=== PATIENT | female | born 1925 | race Caucasian/White ===

== ENCOUNTER 2016-09-20 07:39 | Observation (INO) | payer MEDICARE ==
[2016-09-20] MEDS ORDERED: ACETAMINOPHEN 325 MG TABLET PO ONE (08:43)
[2016-09-20] MEDS ORDERED: LABETALOL HCL INJ 20 MG/4 ML DISP.SYRIN IV ONE (08:43)
--- NOTE | 2016-09-20 09:25 | ER Document Report ---
ED Neuro Symptoms/Deficit - General Chief Complaint: Altered Mental Status Stated Complaint: ALTERED MENTAL STATUS Mode of Arrival: Medic Information source: Patient, POA - Power of Solutions Architect Consultant TRAVEL OUTSIDE OF THE [place] IN LAST 30 DAYS: No - HPI Patient complains to provider of: Other - Altered status Onset: This morning Notes: Patient arrives via EMS for complaints of altered mental status. The patient has a history of dementia. She lives with her son. Son states that this morning he went out to get the paper and when he came back in his mother was standing in the living room with no lights on. She did not recognize him he was having difficulty speaking. She was brought in by EMS by the time she arrived to the emergency department she seemed to be back to her baseline. The patient is alert and oriented to person place and time at this time. She complains of a mild headache. She denies any unilateral numbness tingling or weakness. She denies any blurred or loss vision. She is on no blood thinners. No fevers. She denies any chest pain or short breath. No abdominal pain. No nausea vomiting diarrhea. - Related Data Allergies/Adverse Reactions: No Known Allergies Allergy (Verified 06/24/13 16:57) Past Medical History - Social History Smoking Status: Unknown if Ever Smoked Frequency of alcohol use: None Drug Abuse: None Family History: Reviewed & Not Pertinent - Past Medical History Cardiac Medical History: Reports: Hx Hypercholesterolemia, Hx Hypertension Denies: Hx Atrial Fibrillation, Hx Congestive Heart Failure, Hx Coronary Artery Disease, Hx Heart Attack Pulmonary Medical History: Reports: Hx COPD Denies: Hx Tuberculosis Neurological Medical History: Denies: Hx Cerebrovascular Accident, Hx Migraine Endocrine Medical History: Reports: Hx Diabetes Mellitus Type 2 Renal/ Medical History: Denies: Hx End Stage Renal Disease Psychiatric Medical History: Denies: Hx Depression Past Surgical History: Reports: Hx Cardiac Surgery - Pacemaker - Immunizations Hx Diphtheria, Pertussis, Tetanus Vaccination: No Hx Pneumococcal Vaccination: 03/17/13 Review of Systems - Review of Systems -: Yes All other systems reviewed and negative Physical Exam - Vital signs Vitals: Resp BP Pulse Ox 14 208/65 H 99 09/20/16 08:03 09/20/16 08:03 09/20/16 08:03 - General General appearance: Appears well, Alert - HEENT Head: Normocephalic, Atraumatic Eyes: Normal Extraocular movements intact: Yes Pupils: PERRL Visual marin normal: Yes Ears: Normal Mouth/Lips: Normal Mucous membranes: Normal Pharynx: Normal Neck: Normal - Respiratory Respiratory status: No respiratory distress Breath sounds: Normal - Cardiovascular Rhythm: Regular Heart sounds: Normal auscultation Murmur: No - Abdominal Inspection: Normal Distension: No distension Bowel sounds: Normal Tenderness: Nontender Organomegaly: No organomegaly - Back Back: Normal, Nontender - Extremities General upper extremity: Normal inspection, Nontender, Normal color, Normal ROM , Normal temperature General lower extremity: Normal inspection, Nontender, Normal color, Normal ROM , Normal temperature, Normal weight bearing. No: Wilma's sign - Neurological Neuro grossly intact: Yes Cognition: Normal Orientation: AAOx4 Luz Coma Scale Eye Opening: Spontaneous [place] Coma Scale Verbal: Oriented [place] Coma Scale Motor: Obeys Commands [place] Coma Scale Total: 15 Speech: Normal Cranial nerves: Normal Cerebellar coordination: Normal Motor strength normal: LUE, RUE, LLE, RLE Additional motor exam normals: Equal imaging engineer. No: Pronator drift, Weakness, Hemiplegia Sensory: Normal Notes: NIH stroke score of 0 - Psychological Associated symptoms: Normal affect, Normal mood - Skin Skin Temperature: Warm Skin Moisture: Dry Skin Color: Normal Course - Re-evaluation Re-evalutation: 09/20/16 10:48 Patient is nontoxic appearing with stable vitals at this time. Patient had an episode this morning where she was having difficulty speaking and did not recognize her son which is not normal for her. By the time she arrived to the emergency department she was back to her baseline. She does have a history of dementia. She has a normal neurological exam with an NIH stroke score of 0. Her workup is unremarkable. She is not in A. fib, she has no sign of urinary tract infection, troponin is negative, chest x-ray shows no acute abnormality, head CT shows no acute findings patient is going to be admitted the hospital for concerns for TIA. I discussed the case with Dr. Canchola, the admitting physician, he accepts the admission for telemetry. The patient is noted to have elevated blood pressure during today's emergency department visit. The patient was informed of this finding. The patient was instructed that this may be related to pre-hypertension and requires further evaluation with a primary care provider. The patient has no hypertensive symptoms at this time. - Vital Signs Vital signs: Temp Pulse Resp BP Pulse Ox 98.6 F 62 14 178/66 H 98 09/20/16 10:01 09/20/16 08:34 09/20/16 10:01 09/20/16 10:01 09/20/16 10:01 - Laboratory Result Diagrams: 09/20/16 09:20 09/20/16 09:20 Laboratory results interpreted by me: 09/20/16 09/20/16 09/20/16 09:20 09:20 09:20 Glucose 204 H NT-Pro-B Natriuret Pep 1060 H Urine Protein 100 H Urine Glucose (UA) 50 H - Diagnostic Test Radiology reviewed: Image reviewed, Reports reviewed - Chest x-ray no acute findings. Head CT with no acute findings. - EKG Interpretation by Me Rate: Normal Additional EKG results interpreted by me: 09/20/16 09:30 Atrial paced rhythm with right bundle branch block and left fascicular block. No change compared to 11/28/2015 Discharge - Discharge Clinical Impression: Transient ischemic attack (TIA) Qualifiers: Transient cerebral ischemia type: unspecified Qualified Code(s): G45.9 - Transient cerebral ischemic attack, unspecified Condition: Stable Disposition: ADMITTED OBSERVATION Admitting Provider: Hospitalist - Dr. Canchola Unit Admitted: Telemetry
[2016-09-20 09:59] LABS: ABSOLUTE EOSINOPHILS # (AUTO) 0.1 10^3/uL (0.0-0.6); ABSOLUTE LYMPHOCYTES (AUTO) 1.8 10^3/uL (0.5-4.7); ABSOLUTE MONOCYTES (AUTO) 0.6 10^3/uL (0.1-1.4); ABSOLUTE NEUT (AUTO) 4.6 10^3/uL (1.7-8.2); APPEARANCE,URINE CLEAR; BASOPHILS % (AUTO) 0.7 % (0-2); BILIRUBIN,URINE NEGATIVE (NEGATIVE); EOSINOPHILS % (AUTO) 0.8 % (0-6); GLUCOSE, URINE 50 mg/dL (NEGATIVE); HEMOGLOBIN 13.4 g/dL (12.0-15.5); HGB HCT DIFFERENCE 1.2; KETONES,URINE NEGATIVE (NEGATIVE); LEUKOCYTE ESTERASE,URINE NEGATIVE (NEGATIVE); LYMPHOCYTES % (AUTO) 25.3 % (13-45); MEAN CORPUSCULAR HEMOGLOBIN 33.2 pg (27.0-33.4); MEAN CORPUSCULAR HGB CONC 34.4 g/dL (32.0-36.0); MEAN CORPUSCULAR VOLUME 96 fl (80-97); MONOCYTES % (AUTO) 7.9 % (3-13); NITRITE,URINE NEGATIVE (NEGATIVE); PROTEIN,URINE 100 mg/dL (NEGATIVE); RED BLOOD COUNT 4.05 10^6/uL (3.72-5.28); RED CELL DISTRIBUTION WIDTH 13.5 % (11.5-14.0); SEGMENTED NEUTROPHILS % (AUTO) 65.3 % (42-78); URINE SPECIFIC GRAVITY 1.009; UROBILINOGEN,URINE NEGATIVE mg/dL (<2.0); WHITE BLOOD COUNT 7.1 10^3/uL (4.0-10.5)
[2016-09-20 10:06] LABS: PROTHROMBIN TIME 13.1 SEC (11.4-15.4)
[2016-09-20 10:16] LABS: ALANINE AMINOTRANSFERASE 21 U/L (9-52); ALBUMIN 4.2 g/dL (3.5-5.0); ALKALINE PHOSPHATASE 57 U/L (38-126); ANION GAP 10 (5-19); ASPARTATE AMINO TRANSFERASE 25 U/L (14-36); BILIRUBIN,DIRECT 0.1 mg/dL (0.0-0.4); BILIRUBIN,TOTAL 1.1 mg/dL (0.2-1.3); BLOOD UREA NITROGEN 18 mg/dL (7-20); CALCIUM 9.5 mg/dL (8.4-10.2); CARBON DIOXIDE 29 mmol/L (22-30); CHLORIDE 99 mmol/L (98-107); CREATINE KINASE 41 U/L (30-135); CREATININE RESULT 0.73 mg/dL (0.52-1.25); GLUCOSE 204 mg/dL (75-110); POTASSIUM 4.4 mmol/L (3.6-5.0); SODIUM 137.7 mmol/L (137-145); TOTAL PROTEIN 6.7 g/dL (6.3-8.2)
[2016-09-20 10:17] LABS: ALCOHOL < 10 mg/dL (NONE DETECTED)
[2016-09-20 10:35] LABS: URINE BARBITURATES SCREEN NEGATIVE; URINE METHADONE SCREEN NEGATIVE; URINE OPIATES LOW NEGATIVE; URINE PHENCYCLIDINE SCREEN NEGATIVE
[2016-09-20 10:44] LABS: TROPONIN I < 0.012 ng/mL
[2016-09-20] MEDS ORDERED: ASPIRIN 325 MG TABLET PO ONE (10:49)
[2016-09-20] MEDS ORDERED: MAGNESIUM HYDROXIDE SUSP 30 ML UDCUP PO PRN (12:10)
[2016-09-20] MEDS ORDERED: INSULIN LISPRO 100 UNIT/ML 3 ML VIAL SUBCUT PRN (12:10)
[2016-09-20] MEDS ORDERED: IPRATROPIUM/ALBUTEROL 0.5-2.5 MG/3 ML AMPUL NEB PRN (12:10)
[2016-09-20] MEDS ORDERED: DEXTROSE 50%-WATER 25 GM/50 ML DISP.SYRIN IV PRN ×2 (12:10)
[2016-09-20] MEDS ORDERED: GLUCAGON,HUMAN RECOMB 1 MG INJ IM PRN (12:10)
[2016-09-20] MEDS ORDERED: ONDANSETRON HCL INJ/PF 4 MG/2 ML SDV IV PRN (12:10)
[2016-09-20] MEDS ORDERED: DEXTROSE 40% GEL 15 GM TUBE PO PRN ×2 (12:10)
[2016-09-20] MEDS ORDERED: ACETAMINOPHEN 325 MG TABLET PO PRN (12:10)
[2016-09-20 12:25] LABS: MAGNESIUM 1.7 mg/dL (1.6-2.3); PHOSPHORUS 4.1 mg/dL (2.5-4.5)
--- NOTE | 2016-09-20 12:32 | PDOC H&P ---
History of Present Illness Admission Date/PCP: 09/20/16 11:05 GAY MARTINES MD Patient complains of: difficulty speaking History of Present Illness: SAÚL VILLARREAL is a 89 year old female presents from home after sudden onset of difficulty speaking this morning. Son, with whom she lives, reports she went to bed last night in her usual state of health but he awoke this morning to find her standing and the threshold of her door seemingly confused, and speaking in a word salad attempting to spell random words and unable to communicate effectively. There is no facial asymmetry, unilateral weakness, coughing choking gagging, difficulty swallowing or slurred speech. 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 She also has underlying dementia that is slowly progressive most notable as short-term memory loss, she was sundowning during her most recent admission for pneumonia in the last 6 months. The patient is currently alert and oriented to person, family, place and season but not specific date and time. She remembers having difficulty getting her words out this morning with some confusion but cannot tell me what she had for breakfast this morning, nor does she remember the ride in to the hospital. She denies chest pain, headache, dizziness, numbness or tingling, weakness, fever, chills, cough with phlegm, vision or hearing changes. Evaluation in the emergency department shows no acute findings, in fact her laboratory work is normal and CT of the head was negative for intracranial bleed. We were asked to admit the patient for overnight observation of suspected TIA. I discussed with the family their wishes if she were to progress to a full-blown stroke and as before they do not want thrombolytics or transfer to a higher level of care. I had a lengthy discussion with up at the bedside regarding her CODE STATUS, they state all of her family members chose to be a DO NOT RESUSCITATE at her age but they have not yet had that conversation with her or made a decision. They are clearly leaning toward less aggressive interventions just have not formalized their decision and they were encouraged to do so today. Past Medical History Cardiac Medical History: Reports: Hyperlipidema, Hypertension Denies: Atrial Fibrillation, Congestive Heart Failure, Coronary Artery Disease, Myocardial Infarction Pulmonary Medical History: Reports: Chronic Obstructive Pulmonary Disease (COPD) Denies: Tuberculosis Neurological Medical History: Denies: Migraine Endocrine Medical History: Reports: Diabetes Mellitus Type 2 Renal/ Medical History: Denies: End Stage Renal Disease Psychiatric Medical History: Denies: Depression Social History Smoking Status: Unknown if Ever Smoked Frequency of Alcohol Use: None Hx Recreational Drug Use: No Hx Prescription Drug Abuse: No - Advance Directive Resuscitation Status: Full Code Family History Family History: Reviewed & Not Pertinent, CAD, Hypertension Parental Family History Reviewed: Yes Children Family History Reviewed: Yes Sibling(s) Family History Reviewed.: Yes Medication/Allergy Home Medications: Benazepril HCl [Lotensin] 30 mg PO DAILY 06/23/13 Glipizide [Glipizide ER] 20 mg PO DAILY 06/23/13 Magnesium Oxide 400 mg PO DAILY 11/28/15 Aspirin/Dipyridamole [Aggrenox 25 mg/200 mg Capsule SA] 1 cap.sr PO Q12 #60 cpmp.12hr 12/01/15 Ciprofloxacin HCl [Cipro 500 mg Tablet] 500 mg PO Q12 #12 tablet 12/01/15 Docusate Sodium [Colace 100 mg Capsule] 100 mg PO BIDP PRN capsule 12/01/15 Metformin HCl [Glucophage 500 mg Tablet] 750 mg PO BIDACBS #0 tablet 12/01/15 Metoprolol Tartrate [Lopressor 50 mg Tablet] 50 mg PO Q12 #60 tablet 12/01/15 Polyethylene Glycol 3350 [Miralax Powder 17 gm/Packet] 17 gm PO DAILYP PRN powd.pack 12/01/15 Simvastatin [Zocor 40 mg Tablet] 40 mg PO QHS #30 tablet 12/01/15 Sitagliptin Phosphate [Januvia 50 mg Tablet] 100 mg PO DAILY tablet 12/01/15 Risperidone [Risperdal] 0.5 mg PO Q12HP PRN #20 tablet 12/02/15 Allergies/Adverse Reactions: No Known Allergies Allergy (Verified 06/24/13 16:57) Review of Systems Constitutional: ABSENT: chills, fever(s), headache(s), weight gain, weight loss Eyes: ABSENT: visual disturbances Ears: ABSENT: hearing changes Cardiovascular: ABSENT: chest pain, dyspnea on exertion, edema, orthropnea, palpitations Respiratory: ABSENT: cough, hemoptysis Gastrointestinal: ABSENT: abdominal pain, constipation, diarrhea, hematemesis, hematochezia, nausea, vomiting Genitourinary: ABSENT: dysuria, hematuria Musculoskeletal: ABSENT: joint swelling Integumentary: ABSENT: rash, wounds Neurological: PRESENT: abnormal speech, confusion. ABSENT: abnormal gait, dizziness, focal weakness, syncope Psychiatric: ABSENT: anxiety, depression Endocrine: ABSENT: cold intolerance, heat intolerance, polydipsia, polyuria Hematologic/Lymphatic: ABSENT: easy bleeding, easy bruising Physical Exam Vital Signs: Temp Pulse Resp BP Pulse Ox 98.6 F 62 14 178/66 H 98 09/20/16 10:01 09/20/16 08:34 09/20/16 10:01 09/20/16 10:01 09/20/16 10:01 PHYSICAL EXAM GENERAL: NAD; well developed, well nourished; no obese; alert and oriented to person, place, situation HEENT: normocephalic, atraumatic; EOMI, PERRLA, no conjunctival injection, no scleral icterus; oral mucosa moist, neck supple, no LAD, normal ROM RESPIRATORY: no accessory muscle use, no increased WOB, good air entry bilaterally; no wheezes, rales, rhonchi; no inspiratory crackles CARDIO: no JVD; RRR - paced; sharp decrescendo systolic murmur apex; no tachycardia VASCULAR: no carotid bruit; no abdominal bruit; no pallor; 2+ radial, normal capillary refill, varicosities GI: soft; nondistended; normal bowel sounds; no hepato spleno megaly; no rebound, rigidity, guarding NEURO: normal patella reflexes; normal sensation; normal motor function; no dysarthria; no nystagmus; tongue protrudes midline; normal finger to nose; able to cross midline with finger to ear MSK: 5/5 strength; normal ROM hips; no tenderness EXTREMITIES: no calf tender; no palpable cords in calf; no clubbing, cyanosis , pedal edema PSYCH: normal affect, normal mood SKIN: warm; moist; no petechiae; no telengectasias; no jaundice; no rash Results Laboratory Results: Labs reviewed and devoid of significant abnormalities Impressions: Chest X-Ray 09/20/16 08:05 IMPRESSION: NO ACUTE RADIOGRAPHIC FINDING IN THE CHEST. FAINTLY NODULAR APPEARANCE THROUGHOUT THE LUNGS. IF CLINICALLY INDICATED AND THERE HAS BEEN NO PRIOR OUTPATIENT EVALUATION, THEN CT OF THE CHEST MAY BE INDICATED AT SOME POINT. Head CT 09/20/16 08:05 IMPRESSION: CHRONIC CHANGES OF ATROPHY AND MICROVASCULAR ISCHEMIA. NO ACUTE PROCESS. Status: Image reviewed by me - Agree with radiology Assessment & Plan - Diagnosis (1) Transient ischemic attack (TIA) Qualifiers: Transient cerebral ischemia type: unspecified Qualified Code(s): G45.9 - Transient cerebral ischemic attack, unspecified Is this a current diagnosis for this admission?: YesPlan: Admit patient to a monitored observational bed, neurologic checks through the night, continue Aggrenox and statin therapy. Supportive care otherwise. No thrombolytics to be given in the event of CVA and no transfer to tertiary care center in the event of significant clinical decline, per the family's wishes. Review of the record shows borderline B12 deficiency and significant hypomagnesemia in the past, so we will screen for other metabolic causes for TIA and treat accordingly. (2) Dementia Qualifiers: Dementia type: unspecified type Is this a current diagnosis for this admission?: YesPlan: Likely vascular dementia and related to prior CVA, appears to be at baseline. Has a history of sundowning during previous admissions, will monitor carefully and treat accordingly. Discussed with Family regarding the risk and benefit of pharmaceutical treatment of acute delirium including the risk of sudden cardiac and they're willing to accept the risk in the event medication as needed to keep her safe. (3) Hyperlipidemia Qualifiers: Hyperlipidemia type: unspecified Qualified Code(s): E78.5 - Hyperlipidemia, unspecified Is this a current diagnosis for this admission?: YesPlan: Continue statin therapy. Lipids checked within the last year show excellent control. (4) Cardiac dysrhythmia Qualifiers: Arrhythmia type: unspecified cardiac arrhythmia Qualified Code(s): I49.9 - Cardiac arrhythmia, unspecified Is this a current diagnosis for this admission?: YesPlan: Status post pacemaker placement and now pacer dependent. (5) Pacemaker Is this a current diagnosis for this admission?: Yes (6) Hypertension Qualifiers: Hypertension type: unspecified secondary hypertension Qualified Code(s) : I15.9 - Secondary hypertension, unspecified; I15 - Secondary hypertension Is this a current diagnosis for this admission?: YesPlan: Continue home regimen. - Time Time Spent: Greater than 70 Minutes - Over half this time spent in consultation with the family (patient's remaining children) discussing CODE STATUS; they wish to discuss it amongst themselves and will inform me of the decision by the end of the day. Medications reviewed and adjusted accordingly: Yes Anticipated discharge: Home Within: within 24 hours - Plan Summary Plan Summary: GI prophylaxis with H2 germaine; DVT prophylaxis with renally dosed Lovenox. Patient is having escalating symptoms according to the family, they state since her stroke last year she's had numerous episodes of TIA and they seem to be occurring more frequently. This is occurring in spite of appropriate pharmaceutical management and increase her risk for full-blown CVA, particularly over the next 6 weeks. Prognosis guarded
--- NOTE | 2016-09-20 15:32 | EKG REPORT ---
SEVERITY:- ABNORMAL ECG - ATRIAL-PACED COMPLEXES RBBB AND LAFB : Confirmed by: Olga Lidia Byers MD 20-Sep-2016 15:32:04
[2016-09-20] MEDS ORDERED: HYDRALAZINE HCL INJ/PF 20 MG/1 ML SDV IV PRN (18:54)
[2016-09-20] MEDS ORDERED: METOPROLOL TARTRATE 50 MG TABLET PO SCH (19:00)
[2016-09-20] MEDS ORDERED: ASPIRIN/DIPYRIDAMOLE 25-200 MG 1 CAP.SR CPMP.12HR PO SCH (19:00)
[2016-09-20] MEDS ORDERED: METOPROLOL TARTRATE 50 MG TABLET PO ONE (20:00)
[2016-09-20] MEDS ORDERED: ATORVASTATIN CALCIUM 20 MG TABLET PO SCH (22:00)
[2016-09-21] MEDS: FAMOTIDINE 20 MG TABLET PO SCH ×2 (04:46→09:50)
[2016-09-21] MEDS ORDERED: ENOXAPARIN SODIUM INJ 30 MG/0.3 ML DISP.SYRIN SUBCUT SCH (08:00)
[2016-09-21] MEDS ORDERED: BENAZEPRIL HCL 20 MG TABLET PO SCH (10:00)
[2016-09-21] MEDS ORDERED: DONEPEZIL HCL 5 MG TABLET PO SCH (10:00)
[2016-09-21] MEDS ORDERED: MAGNESIUM OXIDE 400 MG TABLET PO SCH (10:00)
[2016-09-21 11:29] VITALS: BP 151/54
[2016-09-21] MEDS ORDERED: DOXYCYCLINE HYCLATE PO SCH (12:00)
--- NOTE | 2016-09-21 16:15 | PDOC DISCHARGE SUMMARY ---
General - Admit/Disc Date/PCP Admission Date/Primary Care Provider: 09/20/16 12:10 GAY MARTINES MD Discharge Date: 09/21/16 - Discharge Diagnosis (1) Transient ischemic attack (TIA) Is this a current diagnosis for this admission?: YesSummary: no further recurrence of her symptoms while here and neuro monitoring overnight confirms she has returned to her baseline and is safe for d/c home. I discussed this with family at bedside, described s/s of acute CVA and options and they will likely return to the ED for evaluation but do NOT want tPa or transfer to another facility for more aggressive intervention. (2) Dementia Is this a current diagnosis for this admission?: Yes (3) Hyperlipidemia Is this a current diagnosis for this admission?: Yes (4) Cardiac dysrhythmia Is this a current diagnosis for this admission?: Yes (5) Pacemaker Is this a current diagnosis for this admission?: Yes (6) Hypertension Is this a current diagnosis for this admission?: Yes - Additional Information Resuscitation Status: Full Code Discharge Diet: As Tolerated Discharge Activity: Activity As Tolerated Home Medications: Aspirin/Dipyridamole [Aggrenox 25 mg-200 mg Capsule] 2 each PO DAILY 09/20/16 Atorvastatin Calcium [Lipitor 20 mg Tablet] 20 mg PO DAILY 09/20/16 Benazepril HCl [Lotensin 20 mg Tablet] 40.5 mg PO DAILY 09/20/16 Donepezil HCl [Aricept 5 mg Tablet] 10 mg PO DAILY 09/20/16 Doxycycline Hyclate [Oraxyl] 40 mg PO DAILY@1200 09/20/16 Glipizide [Glipizide ER] 20 mg PO DAILY 09/20/16 Metoprolol Tartrate [Lopressor 50 mg Tablet] 100 mg PO DAILY 09/20/16 Sitagliptin Phos/Metformin HCl [Janumet Xr 100-1,000 mg Tablet] 1 each PO QHS Magnesium Oxide [Mag-Ox 400 mg Tablet] 800 mg PO DAILY tablet 09/21/16 History of Present Illness Patient complains of: AMS History of Present Illness: SAÚL VILLARREAL is a 89 year old female presents from home after sudden onset of difficulty speaking this morning. Hospital Course Hospital Course: Son, with whom she lives, reports she went to bed last night in her usual state of health but he awoke this morning to find her standing and the threshold of her door seemingly confused, and speaking in a word salad attempting to spell random words and unable to communicate effectively. There is no facial asymmetry, unilateral weakness, coughing choking gagging, difficulty swallowing or slurred speech. 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 She also has underlying dementia that is slowly progressive most notable as short-term memory loss, she was sundowning during her most recent admission for pneumonia in the last 6 months. The patient is currently alert and oriented to person, family, place and season but not specific date and time. She remembers having difficulty getting her words out this morning with some confusion but cannot tell me what she had for breakfast this morning, nor does she remember the ride in to the hospital. She denies chest pain, headache, dizziness, numbness or tingling, weakness, fever, chills, cough with phlegm, vision or hearing changes. Evaluation in the emergency department shows no acute findings, in fact her laboratory work is normal and CT of the head was negative for intracranial bleed. We were asked to admit the patient for overnight observation of suspected TIA. I discussed with the family their wishes if she were to progress to a full-blown stroke and as before they do not want thrombolytics or transfer to a higher level of care. I had a lengthy discussion with up at the bedside regarding her CODE STATUS, they state all of her family members chose to be a DO NOT RESUSCITATE at her age but they have not yet had that conversation with her or made a decision. They are clearly leaning toward less aggressive interventions just have not formalized their decision and they were encouraged to do so. They have elected to change her to DNR and are taking a MOST form with them for her PCP to fill out, specifying they want limited interventions for correctable problems like UTI or pneumonias but do NOT want aggressive invasive interventions like dialysis, heart cath, tPa and surgery for life threatening acute problems. she has returned to her baseline without showing any lingering effects of her TIA and is stable for d/c home at this time. Physical Exam Vital Signs: Temp Pulse Resp BP Pulse Ox 98.6 F 64 18 151/54 H 96 09/21/16 11:26 09/21/16 11:26 09/21/16 11:26 09/21/16 11:26 09/21/16 11:26 Intake & Output 09/20/16 09/21/16 09/22/16 06:59 06:59 06:59 Intake Total 5 Balance 5 Weight 51.7 kg PHYSICAL EXAM GENERAL: NAD; well developed, well nourished; no obese; alert and oriented to person, place, situation HEENT: normocephalic, atraumatic; EOMI, PERRLA, no conjunctival injection, no scleral icterus; oral mucosa moist, neck supple, no LAD, normal ROM RESPIRATORY: no accessory muscle use, no increased WOB, good air entry bilaterally; no wheezes, rales, rhonchi; no inspiratory crackles CARDIO: no JVD; sharp decrescendo systolic murmur apex; no tachycardia VASCULAR: no pallor; 2+ radial, varicosities GI: soft; nondistended; normal bowel sounds;no rebound, rigidity, guarding NEURO: normal patella reflexes; normal sensation; normal motor function; no dysarthria; no nystagmus; tongue protrudes midline; MSK: 5/5 strength; normal ROM hips; no tenderness EXTREMITIES: no calf tender; no palpable cords in calf; no clubbing, cyanosis , pedal edema PSYCH: normal affect, normal mood SKIN: warm; moist; no petechiae; no telengectasias; no jaundice; Results Impressions: Chest X-Ray 09/20/16 08:05 IMPRESSION: NO ACUTE RADIOGRAPHIC FINDING IN THE CHEST. FAINTLY NODULAR APPEARANCE THROUGHOUT THE LUNGS. IF CLINICALLY INDICATED AND THERE HAS BEEN NO PRIOR OUTPATIENT EVALUATION, THEN CT OF THE CHEST MAY BE INDICATED AT SOME POINT. Head CT 09/20/16 08:05 IMPRESSION: CHRONIC CHANGES OF ATROPHY AND MICROVASCULAR ISCHEMIA. NO ACUTE PROCESS. Qualifiers PATEINT BEING DISCHARGED WITH ANY OF THE FOLLOWING DIAGNOSIS?: No VTE patient discharged on overlapping Therapy?: No Reason(s) for not prescribing Overlap Therapy:: Not indicated Plan Discharge Plan: Discharge home back in the care of her family with follow-up with her PCP in one week. Return to emergency department for escalating symptoms. Time Spent: Greater than 30 Minutes
== END 2016-09-21 11:43 | disposition home or self-care (01) ==
LOC: ER 07:39 → EH 11:05 → UNDOADMOB 11:05 → EH 12:10 → 3S 22:09
PROVIDERS: ADMIT Internal Medicine; ATTEND Internal Medicine
PROC: 3E033GC Introduction of Other Therapeutic Substance into Peripheral Vein, Percutaneous Approach (ICD-10-PCS; principal; 2016-09-20)
DX: G45.9 Transient cerebral ischemic attack, unspecified (principal); F03.90 Unspecified dementia, unspecified severity, without behavioral disturbance, psychotic disturbance, mood disturbance, and anxiety; E78.5 Hyperlipidemia, unspecified; I49.9 Cardiac arrhythmia, unspecified; Z95.0 Presence of cardiac pacemaker; I10 Essential (primary) hypertension; Z66 Do not resuscitate; J44.9 Chronic obstructive pulmonary disease, unspecified; E11.9 Type 2 diabetes mellitus without complications; Z79.84 Long term (current) use of oral hypoglycemic drugs
CPT/HCPCS: 93005; 99285; 96374; 36415 ×2; 82962 ×2; 80307 ×2; 82607; 82550; 83735; 84100; 85025; 85610; 85730; 80053; 81001; 84484; 83036; 83880; 71020; 70450; 93010; G0378 ×3; A9270 ×10; J3490 ×3; J1650; J1815